=== PATIENT | male | born 1995 | race Caucasian/White ===

== ENCOUNTER 2018-06-19 16:31 | Day surgery (SDC) | payer OTHER ==
[~2018-06-19] VITALS: Ht 175.3 cm; Wt 77.8 kg
[2018-06-19] MEDS ORDERED: ONDANSETRON 4MG/2ML VIAL (J2405) IV ONE (17:15)
[2018-06-19] MEDS ORDERED: NS 1,000 ML IV ONE (17:15)
[2018-06-19 17:40] LABS: BASO # 0.1 10^3/uL (0.0-0.2); BASO % 0.4 % (0.0-1.0); EOS # 0.3 10^3/uL (0.0-0.50); EOS % 1.5 % (0.0-3.0); HEMATOCRIT 43.4 % (42.0-52.0); HEMOGLOBIN 14.6 g/dl (13.5-17.5); LYMPH # 1.1 10^3/uL (1.5-6.5); LYMPH % 5.4 % (24.0-44.0); MEAN CORPUSCULAR HEMOGLOBIN 29.5 pg (27.0-33.0); MEAN CORPUSCULAR HGB CONC 33.6 g/dl (32.0-36.5); MEAN CORPUSCULAR VOLUME 87.7 fl (80.0-96.0); MONO # 1.1 10^3/uL (0.0-0.8); MONO % 5.2 % (0.0-5.0); NEUTROPHILS # 17.8 10^3/uL (1.8-7.7); NEUTROPHILS % 87.1 % (36.0-66.0); PLATELET COUNT, AUTOMATED 201 10^3/uL (150-450); RED BLOOD COUNT 4.95 10^6/uL (4.30-6.10); WHITE BLOOD COUNT 20.5 10^3/uL (4.0-10.0)
[2018-06-19 18:06] LABS: ALBUMIN 4.1 GM/DL (3.2-5.2); ALT/SGPT 77 U/L (12-78); BILIRUBIN,DIRECT < 0.1 MG/DL (0.0-0.2); BILIRUBIN,TOTAL 0.3 MG/DL (0.2-1.0); BLOOD UREA NITROGEN 12 MG/DL (7-18); CALCIUM LEVEL 9.3 MG/DL (8.5-10.1); CARBON DIOXIDE LEVEL 29 MEQ/L (21-32); CHLORIDE LEVEL 105 MEQ/L (98-107); GLUCOSE, FASTING 95 MG/DL (70-100); LIPASE 49 U/L (73-393); POTASSIUM SERUM 3.8 MEQ/L (3.5-5.1); SODIUM LEVEL 139 MEQ/L (136-145); TOTAL PROTEIN 7.1 GM/DL (6.4-8.2)
[2018-06-19] MEDS ORDERED: ISOVUE-370 76% 100ML VIAL (Q9967) As Ordered ONE (18:10)
--- NOTE | 2018-06-19 19:20 | REPVR ---
EXAM: CT Abdomen and Pelvis With Contrast EXAM DATE/TIME: 06/19/2018 6:15 PM CLINICAL HISTORY: 22 years old, male; Pain; Other: Abd; Additional info: Rlq pain, R/O appy TECHNIQUE: Imaging protocol: Axial computed tomography images of the abdomen and pelvis with intravenous contrast. Coronal and sagittal reformatted images were created and reviewed. Radiation optimization: All CT scans at this facility use at least one of these dose optimization techniques: automated exposure control; mA and/or kV adjustment per patient size (includes targeted exams where dose is matched to clinical indication); or iterative reconstruction. Contrast material: ISOVUE 370; Contrast volume: 100 ml; Contrast route: IV; COMPARISON: No relevant prior studies available. FINDINGS: ABDOMEN: Liver: Normal. No mass. Gallbladder and bile ducts: Normal. No calcified stones. No ductal dilation. Pancreas: Normal. No ductal dilation. Spleen: 1.6 cm accessory spleen anterior to the splenic hilum. Adrenals: Normal. No mass. Kidneys and ureters: Normal. No hydronephrosis. Stomach and bowel: Normal. No obstruction. No mucosal thickening. Appendix: There is a retrocecal appendix with the tip positioned at the inferior liver edge. There is a surroundinginflammatory change noted. The appendix measures 1.2 cm in diameter. PELVIS: Bladder: Unremarkable as visualized. Reproductive: Unremarkable as visualized. ABDOMEN and PELVIS: Intraperitoneal space: There is thickening small amount of free fluid is seen in the pelvis. Bones/joints: No acute fracture. No dislocation. Soft tissues: Unremarkable. Vasculature: Normal. No abdominal aortic aneurysm. Lymph nodes: Normal. No enlarged lymph nodes. IMPRESSION: Acute appendicitis. No abscess. No perforation. Electronically signed by: Marita Estrada On 06/19/2018 19:20:02 PM
[2018-06-19] MEDS ORDERED: PIPERACILLIN/TAZOBACTAM SOD 3.375 GM in D5W MINI-BAG PLUS 50 ML IV ONE (19:45)
[2018-06-19] MEDS ORDERED: TUMSCHW16 PO (19:45)
--- NOTE | 2018-06-19 19:52 | HPEPDOC ---
General Surgery H&P Date of Admission June 19, 2018 Attending Physician: SAV ANGLIN MD History and Physical CHIEF COMPLAINT: abdominal pain HISTORY OF PRESENT ILLNESS: Patient is a healthy 22 M who presented to the ED with one day history of right sided abdominal pain since he woke up this morning accompanied by nausea and vomiting. He denies any sick contacts. He denies fevers or chils, diarrhea or constipation. ALLERGIES: Please see below. HOME MEDICATIONS: Please see below. PAST MEDICAL HISTORY: 1. none PAST SURGICAL HISTORY: 1. tonsillectomy and adenoidectomy PERSONAL/SOCIAL HISTORY: Reports smoking, denies regular alcohol use, recreational drug use. REVIEW OF SYSTEMS: GENERAL: Denies chills, fatigue, fever, weight gain and weight loss. HEENT: Denies blurred vision and double vision. Denies ear symptoms. Denies hoarseness. NECK: Denies any neck pain. CARDIOVASCULAR: Denies chest pain and palpitations. MUSCULOSKELETAL: Denies arthralgias, back pain and thrombophlebitis. SKIN: Denies rash. NEUROLOGIC: Denies headache, stroke and transient ischemic attack. PSYCHIATRIC: Denies anxiety and depression. ENDOCRINE: Denies thyroid disease. HEMATOLOGY/ONCOLOGY: Denies any bleeding or clotting disorder. HEART: Denies any chest pains, palpitations, paroxysmal dyspnea, orthopnea. PULMONARY: Denies chronic cough, dyspnea and wheezing. GASTROINTESTINAL: Denies rectal bleeding, family history of colon cancer, constipation, diarrhea, dysphagia, heartburn and jaundice. GENITOURINARY: Denies dysuria, frequency, hematuria and nocturia. ENDOCRINE: Denies polydipsia, polyphagia, polyuria, heat or cold intolerance. INFECTIOUS: Denies any recent upper respiratory tract infection, UTI, need for use of antibiotics. NUTRITION: Reports good appetite. PHYSICAL EXAMINATION: VITAL SIGNS: Please see below. GENERAL APPEARANCE: Patient seen at bedside, appears relatively comfortable. Awake, alert, oriented. HEENT: Normocephalic, atraumatic. [place] palpebral conjunctivae. Anicteric sclerae. Lips moist. CHEST: No chest wall abnormalities. Normal respiratory motion/effort. NECK: Supple. No thyromegaly. No lymphadenopathies. LUNGS: Lung sounds are clear to auscultation bilaterally. No wheezing appreciated. HEART: No chest wall abnormalities. Heart rate and rhythm are regular with no murmurs. ABDOMEN: Abdomen is flat, soft, minimally distended, tender over right lower quadrant area with guarding. SKIN: Warm, moist. EXTREMITIES: Extremities have no deformities. No edema identified. NEUROLOGICAL: awake, alert, oriented. ANCILLARIES: . LABORATORY DATA: Please see below. MICROBIOLOGY: Please see below. IMAGING: CT scan of abdomen and pelvis with IV contrast Appendix: There is a retrocecal appendix with the tip positioned at the inferior liver edge. There is a surrounding inflammatory change noted. The appendix measures 1.2 cm in diameter. IMPRESSION AND PLAN: Acute Appendicitis. Patient's history and examinationconsistent with acute appendicitis. He has a highly elevated wbc count at 20,000 which suggests possibility of perforation/necrosis, although CT scan of the abdomen does not demonstrate any contained abscess or suggestion of perforation. Appendix is noted to be thickened, acutely inflamed on a retrocecal course. I discussed with the patient need for surgery for appendectomy as well as the usual postoperative course. He was started on zosyn 3.375 gm IV in the emergency room. I will continue this perioperatively. Full discussion of the risks and benefits of the procedure, other options including nonsurgical attempts are discussed with the patient. Consent obtained from him after full discussion. No particular question or concerns expressed by the patient. Vital Signs Vital Signs Date Time Temp Pulse Resp B/P (MAP) Pulse Ox O2 Delivery O2 Flow Rate FiO2 06/19/18 17:05 06/19/18 16:32 98.7 80 16 100 Room Air Laboratory Data Labs 24H Laboratory Tests 2 06/19/18 17:20: Immature Granulocyte % (Auto) 0.4, White Blood Count 20.5H, Red Blood Count 4.95, Hemoglobin 14.6, Hematocrit 43.4, Mean Corpuscular Volume 87.7, Mean Corpu scular Hemoglobin 29.5, Mean Corpuscular Hemoglobin Concent 33.6, Red Cell Distribution Width 11.9, Platelet Count 201, Neutrophils (%) (Auto) 87.1H, Lymphocytes (%) (Auto) 5.4L, Monocytes (%) (Auto) 5.2H, Eosinophils (%) (Auto) 1.5, Basophils (%) (Auto) 0.4, Neutrophils # (Auto) 17.8H, Lymphocytes # (Auto) 1.1L, Monocytes # (Auto) 1.1H, Eosinophils # (Auto) 0.3, Basophils # (Auto) 0.1, Nucleated Red Blood Cells % (auto) 0.0, Urine Color YELLOW, Urine Appearance CLEAR, Urine pH 7.0, Urine Specific [place] 1.044, Urine Protein NEGATIVE, Urine Glucose (UA) NEGATIVE, Urine Ketones 1+H, Urine Blood NEGATIVE, Urine Nitrite NEGATIVE, Urine Bilirubin NEGATIVE, Urine Urobilinogen 0.2, Urine Leukocyte Esterase NEGATIVE, Urine WBC (Auto) 0, Urine RBC (Auto) 1, Urine Hyaline Casts (Auto) 0, Urine Bacteria (Auto) NEGATIVE, Urine Squamous Epithelial Cells 0, Urine Amorphous Sediment SMALLH, Urine Sperm (Auto) , Anion Gap 5L, Calcium Level 9.3, Aspartate Amino Transf (AST/SGOT) 21, Alanine Aminotransferase (ALT/SGPT) 77, Alkaline Phosphatase 75, Total Bilirubin 0.3, Direct Bilirubin < 0.1, Total Protein 7.1, Albumin 4.1, Albumin/Globulin Ratio 1.37, Lipase 49L CBC/BMP Laboratory Tests 06/19/18 17:20 Red Blood Count 4.95, Mean Corpuscular Volume 87.7, Mean Corpuscular Hemoglobin 29.5, Mean Corpuscular Hemoglobin Concent 33.6, Red Cell Distribution Width 11.9, Neutrophils (%) (Auto) 87.1 H, Lymphocytes (%) (Auto) 5.4 L, Monocytes (%) (Auto) 5.2 H, Eosinophils (%) (Auto) 1.5, Basophils (%) (Auto) 0.4, Neutrophils # (Auto) 17.8 H, Lymphocytes # (Auto) 1.1 L, Monocytes # (Auto) 1.1 H, Eosinophils # (Auto) 0.3, Basophils # (Auto) 0.1 Home Medications Scheduled PRN Calcium Carbonate (Tums Smoothies) 300 Mg Tab.chew, 300 MG PO DAILY PRN for STOMACH PAIN, (Reported) Allergies Coded Allergies: No Known Allergies (Unverified , 06/19/18) A-FIB/CHADSVASC A-FIB History Current/History of A-Fib/PAF?: No Current Oral Anticoagulant The: No SAV ANGLIN MD June 19, 2018 19:48
[2018-06-19] MEDS ORDERED: LR 1,000 ML IV SCH ×2 (19:58→23:45)
[2018-06-19 20:45] VITALS: BP 128/59
[2018-06-19] MEDS ORDERED: PROPOFOL 200 MG/20 ML VIAL As Ordered ONE (21:43)
[2018-06-19] MEDS ORDERED: ONDANSETRON 4MG/2ML VIAL (J2405) As Ordered ONE (21:43)
[2018-06-19] MEDS ORDERED: fentaNYL 100 MCG/2 ML INJECTION (J3010) As Ordered ONE (21:43)
[2018-06-19] MEDS ORDERED: LIDOCAINE 2% INJ 100 MG/5 ML SDV (FOR ANES.) As Ordered ONE (21:43)
[2018-06-19] MEDS ORDERED: MIDAZOLAM INJ 2 MG/2 ML VIAL (J2250) As Ordered ONE (21:43)
[2018-06-19] MEDS ORDERED: ROCURONIUM BROMIDE 50 MG/5 ML VIAL As Ordered ONE (21:43)
[2018-06-19] MEDS ORDERED: dexameTHASONE 4 MG/ML 1ML VIAL (J1100) As Ordered ONE (21:43)
[2018-06-19] MEDS ORDERED: LIDOCAINE 1% SDV INJ 30 ML VIAL As Ordered ONE (21:54)
[2018-06-19] MEDS ORDERED: BUPIVACAINE HCL 0.25% 30 ML VIAL As Ordered ONE (21:55)
[2018-06-19] MEDS ORDERED: fentaNYL 250 MCG/5 ML INJECTION (J3010) As Ordered ONE (22:36)
[2018-06-19] MEDS ORDERED: ESMOLOL INJ 100MG/10ML VIAL As Ordered ONE (22:41)
[2018-06-19] MEDS ORDERED: NEOSTIGMINE 10 MG/10 ML VIAL (J2710) As Ordered ONE (23:05)
[2018-06-19] MEDS ORDERED: GLYCOPYRROLATE INJ 0.2 MG/ML 2 ML VIAL As Ordered ONE (23:05)
[2018-06-19] MEDS ORDERED: KETOROLAC 60 MG/2 ML VIAL (J1885) As Ordered ONE (23:12)
[2018-06-19] MEDS ORDERED: SUGAMMADEX SODIUM 500 MG/5 ML VIAL (BRIDION) As Ordered ONE (23:21)
[2018-06-19] MEDS ORDERED: KETOROLAC 30 MG/ML VIAL (J1885) IV PRN (23:30)
[2018-06-19] MEDS ORDERED: NORCO, ANEXSIA 5/325MG TABLET (HYDROcodone/ACETAMINOPHEN) PO PRN ×2 (23:30)
[2018-06-19] MEDS ORDERED: ONDANSETRON 4MG/2ML VIAL (J2405) IV SCH (23:30)
[2018-06-19] MEDS ORDERED: MORPHINE 4 MG/ML 1ML VIAL/SYRINGE (J2270) IV PRN (23:30)
--- NOTE | 2018-06-19 23:30 | ROOPDOC ---
[facility] Report Of Operation Report of Operation DATE OF PROCEDURE: 06/19/18 PREPROCEDURE DIAGNOSES: Acute Appendicitis. POSTPROCEDURE DIAGNOSES: Acute Appendicitis. PROCEDURE: Laparoscopic Appendectomy. SURGEON: Avery Zamora MD PHARMACY ANCILLARY: none ANESTHESIA: General Anesthesia. ESTIMATED BLOOD LOSS: Approximately 10 mL. COMPLICATIONS: none. REMARKS: Minety 22 M with one day history of right sided abdominal pain, tenderness on exam, wbc of 20,000, CT findings of Acute Appendicitis. PROCEDURE NOTE: Appendix in a retrocecal position, dilated, thickened at midportion to the tip with fibrin coating, tiny amount of fluid in the right gutter. No perforation. No discrete abscess DESCRIPTION OF PROCEDURE: Patient has been given a dose of Zosyn perioperatively during his presentation to the ED.Patient was brought to the operating room, placed supine on the table. Sequential compression device placed for DVT prophylaxis. General endotracheal anesthesia started. The abdomen prepped and draped in usual sterile fashion. After a surgical timeout, we began our surgery Entry into the abdomen done through an incision above the umbilicus. Veress needle inserted on a controlled fashion. Intra-abdominal placement confirmed with saline drop technique. CO2 insufflation started to a pressure of 15 mmHg. Using the same incision an 5 mm port was placed under direct vision of laparoscope (later exchanged to 8 mm). Insertion site was inspected for injury and none was found. He was placed on a Trendelenburg position the right side tilted to about 30 to allow for better visualization of the appendix. Two 5 mm working port were placed at the suprapubic area, and left lower quadrant area under direct vision. An 8 mm port was exchanged for the 5 mm umbilical port. Operative findings: The appendix is located lateral to the cecum going up towards the ascending colon and slight retrocecal course with fibrous tissue attachment to the lateral cecal wall. The distal half of the appendix is thicke alistair, distended and acutely inflamed with fibrinous coating at the tip of the appendix. The base of the appendix appears healthy, minimally thickened, and involved. No gross perforation or necrosis of the wall of the appendix is noted. There is a small amount of serous fluid related to the inflammation of the appendix along the right gutter. The appendix was located, the adhered bowels and mesentery was retracted away from the appendix. I started working close to the base of the appendix freeing up the fibrous attachments of the appendix to the cecal wall as well as to the lateral abdominal wall. This exposed the thickened mesentery which was divided using the Harmonic scalpel starting from the base towards the tip of the appendix. Two Vicryl Endoloops were placed to ligate the appendix at its base then divided with a Harmonic Scalpel the stump cauterized. Stump appears healthy. Appendix was then delivered into an Endo Catch bag. After re- insufflation, the surgical site was inspected for hemostasis, the visualized fluid collections in small amount of pulled blood was isuctioned off. Surrounding areas of the abdomen were inspected for fluid collections or signs of injury. The abdomen was deflated. All ports removed. The umbilical fascial defect repaired with 0 Vicryl in a mattress fashion. All skin incisions closed with 4-0 Monocryl in a subcuticular fashion. Steri-Strips and gauze dressing used for wound coverage. Patient was promptly awake and extubated and brought to recovery room stable. All counts of sponges and instruments verified to be correct. AVERY ZAMORA MD June 19, 2018 23:30
[2018-06-19] MEDS ORDERED: ONDANSETRON 4MG/2ML VIAL (J2405) IV PRN (23:45)
[2018-06-19] MEDS ORDERED: PERCOCET 5MG/325MG TAB PO PRN (23:45)
[2018-06-19] MEDS ORDERED: ACETAMINOPHEN TAB 650MG DOSE (2X325MG) PO PRN (23:45)
[2018-06-19] MEDS ORDERED: fentaNYL 100 MCG/2 ML INJECTION (J3010) IV PRN (23:45)
[2018-06-20] VITALS (8 sets, daily range): BP systolic 102–120; BP diastolic 50–59
[2018-06-20] MEDS: ONDANSETRON 4MG/2ML VIAL (J2405) IV SCH ×2 (03:34→10:06)
[2018-06-20] MEDS ORDERED: SLF 3 ML SYR IV PRN (04:00)
[2018-06-20] MEDS ORDERED: PIPERACILLIN/TAZOBACTAM SOD 3.375 GM in D5W MINI-BAG PLUS 50 ML IV SCH ×3 (06:00)
[2018-06-20] MEDS ORDERED: SLF 3 ML SYR IV SCH (06:00)
[2018-06-20 06:43] LABS: BASO % 0.1 % (0.0-1.0); HEMATOCRIT 40.6 % (42.0-52.0); LYMPH # 0.6 10^3/uL (1.5-6.5); LYMPH % 4.1 % (24.0-44.0); MEAN CORPUSCULAR HEMOGLOBIN 30.6 pg (27.0-33.0); MEAN CORPUSCULAR HGB CONC 34.5 g/dl (32.0-36.5); MEAN CORPUSCULAR VOLUME 88.8 fl (80.0-96.0); MONO # 0.3 10^3/uL (0.0-0.8); MONO % 1.6 % (0.0-5.0); NEUTROPHILS # 14.2 10^3/uL (1.8-7.7); NEUTROPHILS % 93.7 % (36.0-66.0); PLATELET COUNT, AUTOMATED 191 10^3/uL (150-450); RED BLOOD COUNT 4.57 10^6/uL (4.30-6.10); WHITE BLOOD COUNT 15.2 10^3/uL (4.0-10.0)
[2018-06-20 07:06] LABS: BLOOD UREA NITROGEN 11 MG/DL (7-18); CARBON DIOXIDE LEVEL 27 MEQ/L (21-32); CHLORIDE LEVEL 106 MEQ/L (98-107); CREATININE FOR GFR 1.19 MG/DL (0.70-1.30); GLUCOSE, FASTING 158 MG/DL (70-100); POTASSIUM SERUM 4.4 MEQ/L (3.5-5.1); SODIUM LEVEL 141 MEQ/L (136-145)
[2018-06-20] MEDS ORDERED: HYDR-4571 PO (10:38)
[2018-06-20] MEDS ORDERED: AUGM875T28 PO (10:38)
[2018-06-20] MEDS ORDERED: FLAG500T PO (10:38)
--- NOTE | 2018-06-20 10:41 | IPNPDOC ---
Subjective General Date/Time Seen The patient was seen on 06/20/18 at 10:40. Subject Chief Complaint/History The patient is a 22-year-old male admitted with a reason for visit of Acute Appendicitis. He reports feeling better, mild incisional discomfort at the umbilical port site. Not much discomfort over the right lower quadrant area. He has been afebrile postoperatively. He is tolerating regular diet. Current Medications Current Medications Current Medications Acetaminophen (Tylenol Tab) 650 mg Q4HP PRN PO PAIN OR FEVER; Start 06/19/18 at 23:45 Acetaminophen/ Hydrocodone Bitart ([place], Anexsia 5/325) 1 tab Q4HP PRN PO MILD/MODERATE PAIN (PS 1-7) Last administered on 06/20/18at 07:44; Start 06/19/18 at 23:30 Acetaminophen/ Hydrocodone Bitart ([place], Anexsia 5/325) 2 tab Q4HP PRN PO SEVERE PAIN (PS 8-10); Start 06/19/18 at 23:30 Fentanyl Citrate (Sublimaze) 25 mcg Q5MP PRN IV MODERATE PAIN (PS 4-7); Start 06/19/18 at 23:45; Stop 06/19/18 at 23:50; Status DC Home Med (Med Rec Complete!) ASDIRECTED XX ; Start 06/19/18 at 19:45; Stop 06/19/18 at 19:53; Status DC Ketorolac Tromethamine (ToRADol) 30 mg Q6H PRN IV PAIN; Start 06/19/18 at 23:30; Stop 06/24/18 at 23:29 Lactated Ringer's 1,000 ml @ 100 mls/hr Q10H IV Last administered on 06/19/18at 19:58; Start 06/19/18 at 19:58; Stop 06/20/18 at 03:53; Status DC Lactated Ringer's 1,000 ml @ 100 mls/hr Q10H IV ; Start 06/19/18 at 23:45; Stop 06/20/18 at 00:44; Status DC Morphine Sulfate (Morphine Sulfate Inj) 4 mg Q4HP PRN IV SEVERE PAIN (PS 8-10); Start 06/19/18 at 23:30 Ondansetron HCl (ZOFRAN INJection) 4 mg Q4HP PRN IV NAUSEA OR VOMITING; Start 06/19/18 at 23:45; Stop 06/20/18 at 00:46; Status DC Ondansetron HCl (ZOFRAN INJection) 4 mg Q6H IV ; Start 06/19/18 at 23:30; Stop 06/20/18 at 01:11; Status DC Ondansetron HCl (ZOFRAN INJection) 4 mg Q6H IV Last administered on 06/20/18at 03:34; Start 06/20/18 at 04:00 Oxycodone/ Acetaminophen (Percocet 5mg/ 325mg Tablet) 1 tab ASDIRECTED PRN PO MILD/MODERATE PAIN (PS 1-7); Start 06/19/18 at 23:45; Stop 06/20/18 at 00:46; Status DC Piperacillin Sod/ Tazobactam Sod 3.375 gm/Dextrose 50 ml @ 50 mls/hr Q8H IV ; Start 06/20/18 at 00:00; Stop 06/20/18 at 00:37; Status DC Piperacillin Sod/ Tazobactam Sod 3.375 gm/Dextrose 50 ml @ 50 mls/hr Q8H IV Last administered on 06/20/18at 05:39; Start 06/20/18 at 06:00 Sodium Chloride (Saline Lock Flush) 2 ml ASDIRECTED PRN IV SEE LABEL COMMENTS; Start 06/20/18 at 04:00 Sodium Chloride (Saline Lock Flush) 2 ml SLF IV Last administered on 06/20/18at 05:38; Start 06/20/18 at 06:00 Allergies Coded Allergies: No Known Allergies (Unverified , 06/19/18) Objective Physical Examination Examination GENERAL APPEARANCE: Looks tired but comfortable. SKIN: Warm and moist. HEENT: Normocephalic, atraumatic. [place] palpebral conjunctiva, anicteric sclerae. Lips and mucosa appear moist. NECK: Supple, no thyromegaly. No obvious jugular venous distention. LUNGS: Clear to auscultation bilaterally. No wheezing appreciated. HEART: No chest wall abnormalities. Regular rate and rhythm with no murmurs appreciated. ABDOMEN: Abdomen is minimally distended, soft, port site dressings are dry. The umbilical port site slightly stained. Minimal tenderness around the right lower quadrant area and umbilical port site area. EXTREMITIES: Extremities have no deformities. No edema identified. Vital Signs Vital Signs Date Time Temp Pulse Resp B/P (MAP) Pulse Ox O2 Delivery O2 Flow Rate FiO2 06/20/18 08:30 15 06/20/18 08:00 99.8 61 108/51 (70) 95 06/19/18 23:40 2 06/19/18 20:16 Room Air I&Os I&O- Last 24 Hours up to 6 AM 06/20/18 06:00 Intake Total 3020 ml Output Total 385 ml Balance 2635 ml Laboratory Data Labs 24H Laboratory Tests 2 06/19/18 17:20: Immature Granulocyte % (Auto) 0.4, White Blood Count 20.5H, Red Blood Count 4.95, Hemoglobin 14.6, Hematocrit 43.4, Mean Corpuscular Volume 87.7, Mean Corpuscular Hemoglobin 29.5, Mean Corpuscular Hemoglobin Concent 33.6, Red Cell Distribution Width 11.9, Platelet Count 201, Neutrophils (%) (Auto) 87.1H, Lymphocytes (%) (Auto) 5.4L, Monocytes (%) (Auto) 5.2H, Eosinophils (%) (Auto) 1.5, Basophils (%) (Auto) 0.4, Neutrophils # (Auto) 17.8H, Lymphocytes # (Auto) 1.1L, Monocytes # (Auto) 1.1H, Eosinophils # (Auto) 0.3, Basophils # (Auto) 0.1, Nucleated Red Blood Cells % (auto) 0.0, Urine Color YELLOW, Urine Appearance CLEAR, Urine pH 7.0, Urine Specific [place] 1.044, Urine Protein NEGATIVE, Urine Glucose (UA) NEGATIVE, Urine Ketones 1+H, Urine Blood NEGATIVE, Urine Nitrite NEGATIVE, Urine Bilirubin NEGATIVE, Urine Urobilinogen 0.2, Urine Leukocyte Esterase NEGATIVE, Urine WBC (Auto) 0, Urine RBC (Auto) 1, Urine Hyaline Casts (Auto) 0, Urine Bacteria (Auto) NEGATIVE, Urine Squamous Epithelial Cells 0, Urine Amorphous Sediment SMALLH, Urine Sperm (Auto) , Anion Gap 5L, Calcium Level 9.3, Aspartate Amino Transf (AST/SGOT) 21, Alanine Aminotransferase (A LT/SGPT) 77, Alkaline Phosphatase 75, Total Bilirubin 0.3, Direct Bilirubin < 0.1, Total Protein 7.1, Albumin 4.1, Albumin/Globulin Ratio 1.37, Lipase 49L 06/20/18 06:24: Immature Granulocyte % (Auto) 0.5, White Blood Count 15.2H, Red Blood Count 4.57, Hemoglobin 14.0, Hematocrit 40.6L, Mean Corpuscular Volume 88.8, Mean Corpuscular Hemoglobin 30.6, Mean Corpuscular Hemoglobin Concent 34.5, Red Cell Distribution Width 11.9, Platelet Count 191, Neutrophils (%) (Auto) 93.7H, L ymphocytes (%) (Auto) 4.1L, Monocytes (%) (Auto) 1.6, Eosinophils (%) (Auto) 0.0, Basophils (%) (Auto) 0.1, Neutrophils # (Auto) 14.2H, Lymphocytes # (Auto) 0.6L, Monocytes # (Auto) 0.3, Eosinophils # (Auto) 0.0, Basophils # (Auto) 0.0, Nucleated Red Blood Cells % (auto) 0.0, Anion Gap 8, Calcium Level 9.0, Blood Urea Nitrogen 11, Creatinine 1.19, Sodium Level 141, Potassium Level 4.4, Chloride Level 106, Carbon Dioxide Level 27 CBC/BMP Laboratory Tests 06/19/18 17:20 Red Blood Count 4.95, Mean Corpuscular Volume 87.7, Mean Corpuscular Hemoglobin 29.5, Mean Corpuscular Hemoglobin Concent 33.6, Red Cell Distribution Width 11.9, Neutrophils (%) (Auto) 87.1 H, Lymphocytes (%) (Auto) 5.4 L, Monocytes (%) (Auto) 5.2 H, Eosinophils (%) (Auto) 1.5, Basophils (%) (Auto) 0.4, Neutrophils # (Auto) 17.8 H, Lymphocytes # (Auto) 1.1 L, Monocytes # (Auto) 1.1 H, Eosinophils # (Auto) 0.3, Basophils # (Auto) 0.1 06/20/18 06:24 Red Blood Count 4.57, Mean Corpuscular Volume 88.8, Mean Corpuscular Hemoglobin 30.6, Mean Corpuscular Hemoglobin Concent 34.5, Red Cell Distribution Width 11.9, Neutrophils (%) (Auto) 93.7 H, Lymphocytes (%) (Auto) 4.1 L, Monocytes (%) (Auto) 1.6, Eosinophils (%) (Auto) 0.0, Basophils (%) (Auto) 0.1, Neutrophils # (Auto) 14.2 H, Lymphocytes # (Auto) 0.6 L, Monocytes # (Auto) 0.3, Eosinophils # (Auto) 0.0, Basophils # (Auto) 0.0, Calcium Level 9.0 Impression POD1 Laparoscopic Appendectomy ok to go home. WBC still elevated at 15,000 (from 20,000), I will put him on augmentin/flagyl for 7 dyas follow up with me in 2 weeks Plan / VTE VTE Prophylaxis Ordered?: No VTE Exclusion Mechanical Proph: Low Risk for VTE SAV ANGLIN MD June 20, 2018 10:41
== END 2018-06-20 11:55 | disposition home or self-care (01) ==
LOC: M ED 16:31 → M SDC 20:39 → M PED 20:45 → M SDC 06-20 11:55
PROVIDERS: ATTEND Surgery
DX: K35.80 Unspecified acute appendicitis (principal); Z72.0 Tobacco use
CPT/HCPCS: 36415; 44970; 74177; 80048; 80076; 81001; 83690; 85025; 88304; 96360; 96361; 96365; 96375; 96376; 99284; J1100; J1885; J2250; J2405; J2543; J2710; J3010; Q9967